=== PATIENT | male | born 1980 | race Asian ===

== ENCOUNTER 2023-01-05 17:32 | Emergency (ER) | payer OTHER, MEDICAID ==
[~2023-01-05] VITALS: Ht 177.8 cm; Wt 89.8 kg
[2023-01-05 17:41] VITALS: BP 165/110
--- NOTE | 2023-01-05 17:43 | NUR ---
Patient ambulated to bed 03 with steady/even gait.
--- NOTE | 2023-01-05 17:50 | NUR ---
42 y/o M BIB self from home c/o headache x 0700 today, dizziness and nausea x 2 days. Patient A&Ox4, ambulatory, states "I took 10 Advils for my headache yesterday." Unknown dose of Advil; last Advil dose today 0700/1100 without relief to headache. Patient states 7/10, pressure/constant, radiating from occipital region to left side of face. Pt states headache causing slight numbness to left side of face. Denies slurred speech, extremity weakness/numbness, confusion, vomiting, blurry vision, fever. Bed locked in lowest position, side rails x 1. PMH/Sx/Meds: Denies NKDA
--- NOTE | 2023-01-05 18:31 | NUR ---
Dr. Camp evaluating patient at bedside
--- NOTE | 2023-01-05 19:22 | NUR ---
Patient discharged with v/s stable. Written and verbal after care instructions given and explained for Form - Headache Record, General Headache Without Cause. Patient verbalized understanding. Ambulatory with steady gait. All questions addressed prior to discharge. Advised to follow up with PMD.
== END 2023-01-05 19:22 | disposition home or self-care (01) ==
LOC: MED 17:32
DX: R51.9 Headache, unspecified (principal); M54.2 Cervicalgia
CPT/HCPCS: 99282